=== PATIENT | female | born 1980 | race Caucasian/White ===

== ENCOUNTER 2018-04-08 11:07 | Inpatient (IN) | payer OTHER ==
[~2018-04-08] VITALS: Ht 154.9 cm; Wt 58.1 kg
[2018-04-08] MEDS ORDERED: OXYTOCIN/0.9 % SODIUM CHLORIDE 1,000 ML IV SCH (12:09)
[2018-04-08] MEDS ORDERED: LR 1,000 ML IV ONE (12:09)
[2018-04-08] MEDS ORDERED: LR 1,000 ML IV SCH ×3 (12:09→19:24)
[2018-04-08] MEDS ORDERED: TERBUTALINE SULFATE 1 MG/ML VIAL SUBCUT ONE (12:15)
[2018-04-08] MEDS ORDERED: NALBUPHINE HCL 10 MG/ML AMP IVP PRN ×2 (12:15→18:15)
[2018-04-08 13:14] LABS: ALBUMIN 1.5 g/dL (3.4-4.8); CALCIUM 7.4 mg/dL (8.4-11.0); CREATININE 0.93 mg/dL (0.55-1.30); POTASSIUM 4.1 mmol/L (3.5-5.1); TOTAL BILIRUBIN 0.5 mg/dL (0.0-1.0)
[2018-04-08 13:23] LABS: BASOPHILS % (AUTO) 0.9 % (0.0-2.0); EOSINOPHILS % (AUTO) 0.7 % (0.0-4.0); HEMATOCRIT 35.8 % (36-48); HEMOGLOBIN 11.7 g/dL (12.0-16.0); LYMPHOCYTES # (AUTO) 1.5 K/uL (1.0-5.5); LYMPHOCYTES % (AUTO) 21.9 % (20.5-51.5); MEAN CORPUSCULAR HEMOGLOBIN 27 pg (27-31); MEAN CORPUSCULAR HGB CONC 33 % (32-36); MEAN CORPUSCULAR VOLUME 83 fL (79.0-98.0); MONOCYTES # (AUTO) 0.3 K/uL (0.0-1.0); MONOCYTES % (AUTO) 4.6 % (1.7-9.3); NEUTROPHILS # (AUTO) 4.9 K/uL (1.8-7.7); NEUTROPHILS % (AUTO) 71.9 % (40.0-70.0); PLATELET COUNT (AUTO) 227 K/uL (130-430); RED BLOOD CELL COUNT(AUTO) 4.31 MIL/uL (4.2-6.2); RED CELL DISTRIBUTION WIDTH 15.4 % (9.0-15.0); WHITE BLOOD COUNT (AUTO) 6.9 K/uL (4.8-10.8)
[2018-04-08 13:24] LABS: BASOPHILS # (AUTO) 0.1 K/uL (0.0-0.2)
[2018-04-08 13:39] VITALS: BP_SYST 166
[2018-04-08 13:42] LABS: BILIRUBIN,URINE 1+ (NEGATIVE); BLOOD, URINE NEGATIVE (NEGATIVE); CLARITY/URINE CLEAR (CLEAR); COLOR,URINE YELLOW (YELLOW); GLUCOSE,URINE NEGATIVE (NEGATIVE); KETONES,URINE NEGATIVE (NEGATIVE); LEUKOCYTE ESTERASE ,URINE TRACE (NEGATIVE); NITRITE, URINE NEGATIVE (NEGATIVE); PROTEIN URINE TRACE (NEGATIVE)
[2018-04-08 13:45] LABS: BARBITURATE, URINE NEGATIVE (NEG <=200); BENZODIAZEPINE, URINE NEGATIVE (NEG <=150); CANNABINOID, URINE NEGATIVE (NEG <=50); COCAINE, URINE NEGATIVE (NEG <=150); METHAMPHETAMINES SCREEN,URINE NEGATIVE (NEG <=500); OPIATE, URINE NEGATIVE (NEG <=100); PHENCYCLIDINE SCREEN,URINE NEGATIVE (NEG <=25); UR TRICYCLIC ANTIDEPRESSANTS NEGATIVE (NEG <=300); URINE AMPHETAMINE NEGATIVE (NEG <=500); URINE METHADONE NEGATIVE (NEG <=200); URINE OXYCODONE SCREEN NEGATIVE (NEG <=100); URINE PROPOXYPHENE SCREEN NEGATIVE (NEG <=300)
[2018-04-08 13:47] LABS: BACTERIA,URINE FEW /HPF (None Seen); MUCUS,URINE None Seen /LPF (None Seen); RBC,URINE 0-3 /HPF (0-3); WBC,URINE 0-3 /HPF (0-3)
[2018-04-08] MEDS ORDERED: ROPIVACAINE 0.2% 100 ML ONE (13:51)
[2018-04-08] MEDS ORDERED: fentaNYL CITRATE/PF 100 MCG/2 ML AMP ONE (13:51)
[2018-04-08] MEDS ORDERED: OXYTOCIN 10 UNIT/ML VIAL ONE ×2 (15:50→18:03)
[2018-04-08] MEDS ORDERED: CEFAZOLIN 2 GM IVPB PREMIX 50 ML IV ONE ×2 (17:30→17:51)
[2018-04-08] MEDS ORDERED: MORPHINE SULFATE 10MG/10ML PF AMP EP ONE (17:36)
[2018-04-08] MEDS ORDERED: METHYLERGONOVINE MALEATE 0.2 MG/ML AMP ONE (18:03)
[2018-04-08] MEDS ORDERED: LR 500 ML IV SCH (18:06)
[2018-04-08] MEDS ORDERED: fentaNYL CITRATE/PF 100 MCG/2 ML AMP IVP PRN ×2 (18:15)
[2018-04-08] MEDS ORDERED: KETOROLAC TROMETHAMINE 60 MG/2 ML VIAL IM PRN (18:15)
[2018-04-08] MEDS ORDERED: ONDANSETRON HCL 4 MG/2 ML VIAL IVP PRN (18:15)
[2018-04-08] MEDS ORDERED: MORPHINE SULFATE 10MG/10ML PF AMP EP SCH (18:15)
[2018-04-08] MEDS ORDERED: FENT2mCg/mL-ROPIVA0.2%/NS EPID 150 ML EP SCH (18:15)
[2018-04-08] MEDS ORDERED: NALOXONE HCL 0.4 MG/ML AMP (NARCAN) IVP PRN ×2 (18:15)
[2018-04-08] MEDS ORDERED: DIPHENHYDRAMINE INJ 50 MG/ML VIAL IVP PRN (18:15)
[2018-04-08] MEDS ORDERED: LANOLIN 7 GM OINT. TP PRN (19:30)
[2018-04-08] MEDS ORDERED: BISACODYL 10 MG/SUPPOSITORY RC PRN (19:30)
[2018-04-08] MEDS ORDERED: MEASLES,MUMPS&RUBELLA VACC/PF 12500 UNIT/0.5 ML VIAL SUBQ PRN (19:30)
[2018-04-08] MEDS ORDERED: ANUSOL 1 EA SUPP.RECT (PREPARATION H) RC PRN (19:30)
[2018-04-08] MEDS ORDERED: DIPH-TET-PERTUS Vaccine 0.5 ML VIAL (ADACEL) I.M. PRN (19:30)
[2018-04-08] MEDS ORDERED: RHO(D) IMMUNE GLOBULIN/MALTOSE 1500 UNITS/1.3 ML (WINHRO) IM PRN (19:30)
[2018-04-08] MEDS: OXYTOCIN/0.9 % SODIUM CHLORIDE 1,000 ML IV SCH ×2 (19:39→23:36)
[2018-04-08 19:53] VITALS: BP_SYST 106
[2018-04-08] MEDS: SIMETHICONE 80 MG TAB.CHEW PO PRN ×2 (20:26→23:22)
[2018-04-08] MEDS ORDERED: TEMAZEPAM 15 MG CAPSULE PO PRN (21:00)
[2018-04-09] MEDS: SIMETHICONE 80 MG TAB.CHEW PO PRN ×2 (03:27→23:10)
[2018-04-09 08:06] LABS: RED BLOOD CELL COUNT(AUTO) 2.38 MIL/uL (4.2-6.2)
[2018-04-09 08:08] LABS: HEMATOCRIT 20.1 % (36-48); HEMOGLOBIN 6.5 g/dL (12.0-16.0); MEAN CORPUSCULAR VOLUME 84 fL (79.0-98.0)
[2018-04-09 08:09] LABS: BASOPHILS % (AUTO) 0.3 % (0.0-2.0); EOSINOPHILS % (AUTO) 0.6 % (0.0-4.0); LYMPHOCYTES % (AUTO) 23.6 % (20.5-51.5); MEAN CORPUSCULAR HEMOGLOBIN 27 pg (27-31); MEAN CORPUSCULAR HGB CONC 32 % (32-36); NEUTROPHILS % (AUTO) 71.5 % (40.0-70.0); PLATELET COUNT (AUTO) 142 K/uL (130-430); RED CELL DISTRIBUTION WIDTH 15.2 % (9.0-15.0)
[2018-04-09 08:10] LABS: EOSINOPHILS # (AUTO) 0.1 K/uL (0.0-0.4); LYMPHOCYTES # (AUTO) 2.1 K/uL (1.0-5.5); MONOCYTES # (AUTO) 0.4 K/uL (0.0-1.0); NEUTROPHILS # (AUTO) 6.4 K/uL (1.8-7.7)
[2018-04-09] MEDS: IBUPROFEN 600 MG TABLET PO SCH (11:58)
[2018-04-09] MEDS ORDERED: LABETALOL HCL 100 MG TABLET PO ONE ×2 (12:00)
[2018-04-09 18:02] LABS: HEMOGLOBIN 8.6 g/dL (12.0-16.0)
[2018-04-09] MEDS ORDERED: OXYCODONE/ACETAMINOPHEN 5-325 TABLET PO PRN (19:45)
[2018-04-09] MEDS ORDERED: OXYCODONE/ACETAMINOPHEN 5-325 TABLET ONE (19:57)
[2018-04-10] MEDS: LABETALOL HCL 100 MG TABLET PO SCH ×3 (00:10→21:07)
[2018-04-10] MEDS: IBUPROFEN 600 MG TABLET PO SCH ×4 (00:10→23:19)
[2018-04-10] MEDS: OXYCODONE/ACETAMINOPHEN 5-325 TABLET PO PRN ×5 (03:13→23:19)
[2018-04-10] MEDS: DOCUSATE SODIUM 100 MG CAPSULE PO PRN (18:24)
[2018-04-10] MEDS: SIMETHICONE 80 MG TAB.CHEW PO PRN (21:07)
[2018-04-10] MEDS: SENNOSIDES/DOCUSATE SODIUM 1 TAB TABLET(SENOKOT-S) PO PRN (21:07)
[2018-04-11] MEDS ORDERED: BUPIVACAINE /PF 0.5% 30 ML VIAL EP ONE (07:12)
[2018-04-11] MEDS: LABETALOL HCL 100 MG TABLET PO SCH ×3 (09:11→22:30)
[2018-04-11] MEDS: OXYCODONE/ACETAMINOPHEN 5-325 TABLET PO PRN ×2 (10:00→16:32)
[2018-04-11] MEDS: SIMETHICONE 80 MG TAB.CHEW PO PRN ×2 (10:00→16:32)
[2018-04-11] MEDS: IBUPROFEN 600 MG TABLET PO SCH ×2 (12:00→23:23)
[2018-04-12] MEDS: OXYCODONE/ACETAMINOPHEN 5-325 TABLET PO PRN ×2 (00:05→09:44)
[2018-04-12] MEDS: SIMETHICONE 80 MG TAB.CHEW PO PRN ×2 (00:05→09:44)
[2018-04-12] MEDS: DOCUSATE SODIUM 100 MG CAPSULE PO PRN ×2 (00:05→09:43)
[2018-04-12] MEDS: IBUPROFEN 600 MG TABLET PO SCH ×2 (05:30→12:03)
[2018-04-12] MEDS: SENNOSIDES/DOCUSATE SODIUM 1 TAB TABLET(SENOKOT-S) PO PRN (09:43)
[2018-04-12] MEDS: LABETALOL HCL 100 MG TABLET PO SCH (09:49)
[2018-04-12] MEDS ORDERED: LR 1,000 ML IV.SOLN IV ONE (17:36)
[2018-04-12] MEDS ORDERED: ePHEDrine sulfate 50 MG/ML VIAL IVP ONE (17:36)
[2018-04-12] MEDS ORDERED: WATER FOR IRRIGATION,STERILE 1,000 ML IRRIG.SOLN IR ONE (17:36)
[2018-04-12] MEDS ORDERED: METHYLERGONOVINE MALEATE 0.2 MG/ML AMP IM ONE (17:36)
== END 2018-04-12 15:42 | disposition home or self-care (01) | DRG 540 ==
LOC: SPU 11:07
PROVIDERS: ADMIT Obstetrics & Gynecology; ATTEND Obstetrics & Gynecology
PROC: 0UB70ZZ Excision of Bilateral Fallopian Tubes, Open Approach (ICD-10-PCS; 2018-04-08)
PROC: 3E0R3BZ Introduction of Anesthetic Agent into Spinal Canal, Percutaneous Approach (ICD-10-PCS; 2018-04-08)
PROC: 10D00Z1 Extraction of Products of Conception, Low, Open Approach (ICD-10-PCS; principal; 2018-04-08 17:15)
PROC: 30233N1 Transfusion of Nonautologous Red Blood Cells into Peripheral Vein, Percutaneous Approach (ICD-10-PCS; 2018-04-09)
DX: O32.1XX0 Maternal care for breech presentation, not applicable or unspecified (principal); Z30.2 Encounter for sterilization; Z3A.39 39 weeks gestation of pregnancy; Z37.0 Single live birth
CPT/HCPCS: 36415; 76815; 80053; 80307; 81000-TC; 85018-TC; 85025; 86592; 86886; 86900; 86901; 86920; 88302; 90715; 94760; J0690; J1885; J2210; J2274; J2590; J2795; J3010; J3490; J7040; J7120; P9021